=== PATIENT | female | born 1945 | race Caucasian/White ===

== ENCOUNTER 2016-12-16 16:44 | Emergency (ER) | payer MEDICARE, OTHER ==
[~2016-12-16 16:44] MED LIST: ATI2I PO; ATIVAN0.5 M1 PO; ATIVAN1 MG PO; BUS5 PO; EXELON PATCH TD; PLA75 PO; SYN15 PO; SYN25 PO; [UNRECOGNIZED DRUG - REMARK]
[2016-12-16 17:56] LABS: UA SPECIFIC GRAVITY 1.025 (1.005-1.035); microscopic required? YES; urine erythrocyte 3+ (NEGATIVE)
[2016-12-16 18:56] VITALS: BP 96/42
== END 2016-12-16 18:56 | disposition home or self-care (01) ==
LOC: ED 16:44
DX: N30.81 Other cystitis with hematuria (principal); E03.9 Hypothyroidism, unspecified; M79.7 Fibromyalgia; R64 Cachexia; F41.9 Anxiety disorder, unspecified; Z88.1 Allergy status to other antibiotic agents

== ENCOUNTER 2017-03-13 10:01 | Inpatient (IN) | payer OTHER, MEDICARE ==
[~2017-03-13] VITALS: Ht 152.4 cm; Wt 30.4 kg
[2017-03-13 11:06] LABS: BASOPHIL % 0.3 % (0-2); PLATELET COUNT 226 x10^3mcL (130-400)
[2017-03-13 11:12] LABS: RED CELL DISTRIBUTION WIDTH 15.3 % (11.5-14.5)
[2017-03-13 12:07] LABS: CALCIUM 8.3 mg/dL (8.5-10.1); CARBON DIOXIDE 19.3 mmol/L (21-32); CHLORIDE SERUM 106 mmol/L (98-107); CREATININE SERUM 1.4 mg/dL (0.6-1.0); GLUCOSE SERUM 95 mg/dL (74-106); POTASSIUM SERUM 3.9 mmol/L (3.5-5.1); SODIUM SERUM 137 mmol/L (136-145)
[2017-03-13 12:12] LABS: ALBUMIN 3.3 g/dL (3.4-5.0); ALKALINE PHOSPHATASE 79 U/L (46-116); ALT/SGPT 39 U/L (14-59); AST/SGOT 38 U/L (15-37); BILIRUBIN TOTAL 0.6 mg/dL (0.20-1.00); TOTAL PROTEIN, SERUM 7.4 g/dL (6.4-8.2)
[2017-03-13 12:33] LABS: microscopic required? YES; urine erythrocyte 1+ (NEGATIVE)
[2017-03-13 13:47] LABS: AMPHETAMINE QUAL UR NONE DETECTED (NEG <=1000)
[2017-03-13] MEDS ORDERED: ATIVAN1 MG PO (13:51)
[2017-03-13] MEDS ORDERED: MASON NATURAL1000 IU PO (13:52)
[2017-03-13] MEDS ORDERED: LEVOTHYROXIN0.025 M2 PO (13:53)
[2017-03-13 13:54] LABS: T4(THYROXINE) 8.3 ug/dL (4.7-13.3)
[2017-03-13] MEDS ORDERED: EXELON4.6 MG/21 TOP (13:57)
[2017-03-13 14:45] VITALS: BP 142/50
[2017-03-13 15:57] LABS: MAGNESIUM 2.2 mg/dL (1.8-2.4)
[2017-03-13 16:59] VITALS: Ht 152.4 cm; Wt 30.4 kg
[2017-03-13 21:47] VITALS: BP 125/46
[2017-03-14 05:03] VITALS: BP 119/49
[2017-03-14 06:51] LABS: BASOPHIL % 0.8 % (0-2); PLATELET COUNT 199 x10^3mcL (130-400)
[2017-03-14 06:52] LABS: RED CELL DISTRIBUTION WIDTH 15.3 % (11.5-14.5)
[2017-03-14 07:06] LABS: CARBON DIOXIDE 22.3 mmol/L (21-32); CHLORIDE SERUM 110 mmol/L (98-107); CHOLESTEROL 147 mg/dL (<200); CREATININE SERUM 1.3 mg/dL (0.6-1.0); GLUCOSE SERUM 88 mg/dL (74-106); IRON 49 ug/dL (50-170); POTASSIUM SERUM 3.8 mmol/L (3.5-5.1); SODIUM SERUM 141 mmol/L (136-145); TOTAL IRON BINDING CAPACITY 326 ug/dL (250-450); TRIGLYCERIDES 43 mg/dL (<150)
[2017-03-14 07:12] LABS: CHOLESTEROL/HDL RATIO 2.4; HDL CHOLESTEROL 62 mg/dL (40-60)
[2017-03-14 09:02] VITALS: BP 122/64
[2017-03-14 09:21] LABS: RED BLOOD CELLS 3.22 M/mm3 (4.10-5.10)
[2017-03-14 13:39] VITALS: BP 105/39
[2017-03-14 18:33] VITALS: BP 93/64
[2017-03-15 06:53] VITALS: BP 110/41
[2017-03-15 09:10] VITALS: BP 108/45
[2017-03-15 14:00] VITALS: BP 98/38
[2017-03-16 06:42] VITALS: BP 103/40
[2017-03-16] MEDS ORDERED: LEVOTHYROXIN0.025 M2 PO (15:07)
[2017-03-16] MEDS ORDERED: FER300 PO (15:09)
[2017-03-16] MEDS ORDERED: LAC PO (15:09)
[2017-03-16] MEDS ORDERED: VITC PO (15:10)
[2017-03-16] MEDS ORDERED: ROC1I IV (15:11)
[2017-03-16 15:31] VITALS: BP 103/40
== END 2017-03-16 19:40 | DRG 463 ==
LOC: ED 10:01 → MU 13:33 → DU 13:33 → MU 03-15 11:29
PROVIDERS: Emergency Medicine; ADMIT Family Medicine
DX: N39.0 Urinary tract infection, site not specified (principal); N17.0 Acute kidney failure with tubular necrosis; G93.41 Metabolic encephalopathy; E44.0 Moderate protein-calorie malnutrition; Z68.1 Body mass index [BMI] 19.9 or less, adult; F13.10 Sedative, hypnotic or anxiolytic abuse, uncomplicated; G30.9 Alzheimer's disease, unspecified; F02.80 Dementia in other diseases classified elsewhere, unspecified severity, without behavioral disturbance, psychotic disturbance, mood disturbance, and anxiety; F41.1 Generalized anxiety disorder; D64.9 Anemia, unspecified; E03.9 Hypothyroidism, unspecified; G25.81 Restless legs syndrome; R62.50 Unspecified lack of expected normal physiological development in childhood
CPT/HCPCS: 83880; 97110-GP; 97116-GP; 97530-GP; G0480; J0696; J7030; Q0092

== ENCOUNTER 2017-04-28 11:43 | Emergency (ER) | payer MEDICARE, OTHER ==
[~2017-04-28] VITALS: Ht 162.6 cm; Wt 45.4 kg
[~2017-04-28 11:43] MED LIST changes: +EXELON4.6 MG/21 TOP; +FER300 PO; +LAC PO; +LEVOTHYROXIN0.025 M2 PO; +MASON NATURAL1000 IU PO; +ROC1I IV; +VITC PO
[2017-04-28 12:52] LABS: BASOPHIL % 0.1 % (0-2); PLATELET COUNT 232 x10^3mcL (130-400)
[2017-04-28 12:55] LABS: RED CELL DISTRIBUTION WIDTH 16.2 % (11.5-14.5)
[2017-04-28 13:28] LABS: CALCIUM 8.5 mg/dL (8.5-10.1); CARBON DIOXIDE 28.2 mmol/L (21-32); CHLORIDE SERUM 105 mmol/L (98-107); CREATININE SERUM 1.2 mg/dL (0.6-1.0); GLUCOSE SERUM 99 mg/dL (74-106); POTASSIUM SERUM 3.5 mmol/L (3.5-5.1); SODIUM SERUM 141 mmol/L (136-145)
[2017-04-28 13:33] LABS: ALBUMIN 3.4 g/dL (3.4-5.0); ALKALINE PHOSPHATASE 69 U/L (46-116); ALT/SGPT 37 U/L (14-59); AST/SGOT 40 U/L (15-37); BILIRUBIN TOTAL 0.8 mg/dL (0.20-1.00); TOTAL PROTEIN, SERUM 7.3 g/dL (6.4-8.2)
[2017-04-28 14:17] VITALS: BP 113/47
== END 2017-04-28 18:25 | disposition home or self-care (01) ==
LOC: ED 11:43
PROVIDERS: Emergency Medicine
DX: R07.9 Chest pain, unspecified (principal); E86.0 Dehydration; N17.9 Acute kidney failure, unspecified; F41.9 Anxiety disorder, unspecified; F32.9 Major depressive disorder, single episode, unspecified; K21.9 Gastro-esophageal reflux disease without esophagitis; M81.0 Age-related osteoporosis without current pathological fracture; Z88.0 Allergy status to penicillin; Z88.6 Allergy status to analgesic agent; Z88.1 Allergy status to other antibiotic agents; Z88.8 Allergy status to other drugs, medicaments and biological substances
CPT/HCPCS: 36415

== ENCOUNTER 2019-08-31 15:11 | Emergency (ER) | payer MEDICARE, OTHER ==
[~2019-08-31] VITALS: Ht 157.5 cm; Wt 45.4 kg
[2019-08-31 15:33] VITALS: BP 136/38; Ht 157.5 cm; Wt 45.4 kg
[2019-08-31 16:07] LABS: BASOPHIL % 0.2 % (0-2); PLATELET COUNT 294 x10^3mcL (130-400); RED CELL DISTRIBUTION WIDTH 15.4 % (11.5-14.5)
[2019-08-31 16:13] LABS: CARBON DIOXIDE 27.7 mmol/L (21-32); CHLORIDE SERUM 106 mmol/L (98-107); CREATININE SERUM 1.2 mg/dL (0.6-1.0); GLUCOSE SERUM 98 mg/dL (74-106); POTASSIUM SERUM 3.5 mmol/L (3.5-5.1); SODIUM SERUM 142 mmol/L (136-145)
== END 2019-08-31 19:46 | disposition home or self-care (01) ==
LOC: ED 15:11
PROVIDERS: Emergency Medicine
DX: S62.102D Fracture of unspecified carpal bone, left wrist, subsequent encounter for fracture with routine healing (principal); F41.9 Anxiety disorder, unspecified; M79.7 Fibromyalgia; K21.9 Gastro-esophageal reflux disease without esophagitis; X58.XXXD Exposure to other specified factors, subsequent encounter; Z98.890 Other specified postprocedural states; M81.0 Age-related osteoporosis without current pathological fracture; Z88.2 Allergy status to sulfonamides; Z88.0 Allergy status to penicillin; Z88.1 Allergy status to other antibiotic agents; Z88.6 Allergy status to analgesic agent; Z88.5 Allergy status to narcotic agent; Z88.8 Allergy status to other drugs, medicaments and biological substances
CPT/HCPCS: 36415; Q0092